=== PATIENT | female | born 1990 | race Caucasian/White ===

== ENCOUNTER 2020-10-01 07:12 | Emergency (ER) | payer MEDICAID, OTHER ==
[~2020-10-01] VITALS: Ht 154.9 cm; Wt 81.2 kg
[~2020-10-01 07:12] MED LIST: PREN-385 PO
[2020-10-01 07:16] VITALS: BP 126/79
--- NOTE | 2020-10-01 07:24 | NUR ---
PT AMBULATED TO BED 1.
[2020-10-01] MEDS ORDERED: DICYCLOMINE HCL LIQUID 20 MG, ALUMINUM HYD/MAG/SIMETHICONE 30 ML, LIDOCAINE VISCOUS 2% ... PO ONE ×3 (07:35)
[2020-10-01] MEDS ORDERED: LIDOCAINE VISCOUS 2% 20 ML UDC ONE (07:42)
[2020-10-01] MEDS ORDERED: DICYCLOMINE HCL LIQUID 10 MG/5 ML UDC ONE (07:42)
[2020-10-01] MEDS ORDERED: ALUMINUM HYD/MAG/SIMETHICONE 30 ML UDC ONE (07:42)
--- NOTE | 2020-10-01 07:50 | NUR ---
30 YEAR OLD FEMALE COMPLAINS OF ABD PAIN X TODAY. DENIED NAUSEA/VOMITING/DIARRHEA. BOWEL SOUNDS PRESENT IN ALL QUADRANTS. AOX4. BREATHING EVEN AND UNLABORED. SKIN WARM AND DRY. BED IN LOWEST POSITION, LOCKED, X1 SIDERAIL UP. PMH - DENIED NKA
--- NOTE | 2020-10-01 08:10 | NUR ---
Patient discharged with v/s stable. Written and verbal after care instructions about GERD and UTI given and explained. Patient alert, oriented and verbalized understanding of instructions. Ambulatory with steady gait. All questions addressed prior to discharge. ID band removed. Patient advised to follow up with PMD. Rx of CIPRO, PRILOSEC, ZOFRAN given. Patient educated on indication of medication including possible reaction and side effects. Opportunity to ask questions provided and answered.
[2020-10-01 08:14] VITALS: BP 126/79
== END 2020-10-01 08:10 | disposition home or self-care (01) ==
LOC: MED 07:12
DX: R10.13 Epigastric pain (principal); N39.0 Urinary tract infection, site not specified; F17.210 Nicotine dependence, cigarettes, uncomplicated; Z79.899 Other long term (current) drug therapy
CPT/HCPCS: 81002; 81025; 99283